=== PATIENT | female | born 1995 | race Caucasian/White ===

== ENCOUNTER → 2018-10-14 | Outpatient (CLI) | payer OTHER | LOC: M LRY 13:25 | PROVIDERS: ATTEND Nurse Practitioner Family | DX: Z53.9 Procedure and treatment not carried out, unspecified reason (principal) ==

== ENCOUNTER → 2018-10-14 | Outpatient (CLI) | payer OTHER ==
--- NOTE | 2018-10-14 15:27 | REP ---
RIGHT SHOULDER, THREE VIEWS: HISTORY: Acute pain. There is no acute fracture or dislocation. The joint spaces are normal in appearance. IMPRESSION: There is no acute fracture or dislocation. Electronically Signed by Cristian Khan MD 10/14/2018 03:40 P
== END ==
LOC: M LRY 14:32
PROVIDERS: ATTEND Nurse Practitioner Family
DX: M25.511 Pain in right shoulder (principal)

== ENCOUNTER → 2019-04-14 | Outpatient (REF) | payer OTHER | LOC: M LAB LCGH 11:30 | PROVIDERS: ATTEND Obstetrics & Gynecology | DX: Z12.4 Encounter for screening for malignant neoplasm of cervix (principal) ==

== ENCOUNTER → 2019-09-08 | Outpatient (CLI) | payer OTHER | LOC: M LAB 07:49 | PROVIDERS: ATTEND Advanced Practice Midwife | DX: Z34.02 Encounter for supervision of normal first pregnancy, second trimester (principal) ==

== ENCOUNTER 2019-11-04 19:02 | Inpatient (IN) | payer OTHER ==
[~2019-11-04] VITALS: Ht 165.1 cm; Wt 90.1 kg
[2019-11-04 19:17] VITALS: BP 118/69
[2019-11-04] MEDS ORDERED: PENICILLIN G POTASSIUM IV 5 MU in D5W MINI-BAG PLUS 100 ML IV STA (19:44)
[2019-11-04] MEDS ORDERED: OXYTOCIN DRIP 30 UNITS in IV 1 EA IV SCH (20:00)
[2019-11-04] MEDS ORDERED: PRENTAB9 PO (20:10)
[2019-11-04 20:19] LABS: HEMATOCRIT 35.4 % (36.0-47.0); HEMOGLOBIN 11.8 g/dl (12.0-15.5); MEAN CORPUSCULAR HEMOGLOBIN 29.9 pg (27.0-33.0); MEAN CORPUSCULAR HGB CONC 33.3 g/dl (32.0-36.5); MEAN CORPUSCULAR VOLUME 89.8 fl (80.0-96.0); PLATELET COUNT, AUTOMATED 174 10^3/uL (150-450); RED BLOOD COUNT 3.94 10^6/uL (4.00-5.40); WHITE BLOOD COUNT 9.4 10^3/uL (4.0-10.0)
[2019-11-04] MEDS: LR 1,000 ML IV SCH (20:54)
[2019-11-04 21:08] VITALS: BP 119/56
[2019-11-04 22:20] VITALS: BP 135/63
--- NOTE | 2019-11-04 22:35 | HPE ---
DATE OF ADMISSION: 11/04/2019 A 24-year-old 1, para 0 female at 36-1/7 weeks gestation by ultrasound, estimated date of confinement (EDC) 12/01/2019, presents with spontaneous loss of fluid per vagina at 5:30 p.m. on the day of admission. She continued to leak fluid. She denies contractions or vaginal bleeding. COURSE: The patient initiated care in [place]. She transferred to [facility] at 27 weeks on 09/03/2019. She had no complications. MEDICAL HISTORY: 1. Mild asthma. 2. Scoliosis. 3. Polycystic ovary syndrome (PCOS). 4. Gastroesophageal reflux. SURGICAL HISTORY: None. ALLERGIES: CECLOR. SOCIAL HISTORY: The patient denies cigarettes, alcohol or drug use. She lives in [place], [place]. FAMILY HISTORY: Noncontributory. PHYSICAL EXAMINATION: Blood pressure 134/74, pulse 84. Head and neck exam: Normal. Lungs: Clear. Heart: Regular rate and rhythm. Abdomen: Nontender, gravid. heart tones: Category 1. Contractions: None. Sterile vaginal exam: Grossly ruptured, clear fluid, Nitrazine positive, 3 cm, 80%, -2, posterior, soft, vertex. Extremities: Nontender. LABS: GBS unknown. ASSESSMENT: A 24-year-old 1, para 0 at 36 and 1 with premature rupture of membranes. PLAN: The patient will be admitted on 11/04/2019. Risks of premature rupture of membranes (PPROM) were discussed. Plan induction of labor. Plan GBS prophylaxis with penicillin. MTDD
[2019-11-05] VITALS (32 sets, daily range): BP systolic 80–126; BP diastolic 43–92
[2019-11-05] MEDS ORDERED: BUTORPHANOL 2 MG/ML INJ (J0595) IV ONE (00:45)
[2019-11-05] MEDS ORDERED: PROMETHAZINE INJ 25 MG/ML VIAL (J2550) IV ONE (00:45)
[2019-11-05] MEDS: PENICILLIN G POTASSIUM IV 2.5 MU in IV 1 EA IV SCH ×2 (01:02→05:00)
[2019-11-05] MEDS ORDERED: FENTANYL 2MCG/ML ROPIVACAINE 0.2% IN 0.9% NACL 100ML IVBAG As Ordered ONE (01:52)
[2019-11-05] MEDS: LR 1,000 ML IV SCH (02:04)
[2019-11-05] MEDS ORDERED: ePHEDrine SULFATE 25 MG/5 ML(5MG/ML) SYRINGE As Ordered ONE (03:05)
[2019-11-05] MEDS: ePHEDrine SULFATE 25 MG/5 ML(5MG/ML) SYRINGE IV PRN ×3 (03:07→03:19)
[2019-11-05] MEDS ORDERED: FENTANYL/ROPIVACAINE/NACL BAG 100 ML EPIDURAL SCH (03:30)
[2019-11-05] MEDS ORDERED: NALOXONE INJ 0.4MG/1ML VIAL (J2310 PER 1MG) IV PRN (03:30)
[2019-11-05] MEDS ORDERED: EPIDURAL COMMENT XX SCH (03:30)
[2019-11-05] MEDS ORDERED: REFRIGERATOR IV KEYS XX PRN (03:30)
[2019-11-05] MEDS ORDERED: EPIDURAL/PCA KEYS XX PRN (03:30)
[2019-11-05] MEDS ORDERED: ONDANSETRON 4MG/2ML VIAL IV PRN ×2 (03:30→07:00)
[2019-11-05] MEDS ORDERED: diphenhydrAMINE 50MG/ML VIAL (J1200) IV PRN (03:30)
[2019-11-05] MEDS ORDERED: LACTATED RINGER'S 1000 ML IV PRN (03:30)
[2019-11-05] MEDS ORDERED: DOCUSATE SODIUM 100 MG CAP PO PRN (07:00)
[2019-11-05] MEDS ORDERED: MEASLES,MUMPS,RUBELLA VACCINE INJ (MMR-II) (90707) SC SCH (07:00)
[2019-11-05] MEDS ORDERED: IBUPROFEN 600 MG TAB PO PRN (07:00)
[2019-11-05] MEDS ORDERED: RHOGAM 300 MCG (1500 IU) INJ (J2790) IM SCH (07:00)
[2019-11-05] MEDS ORDERED: OXYTOCIN DRIP 30 UNITS in IV 1 EA IV ONE (07:00)
[2019-11-05] MEDS ORDERED: DIBUCAINE 1% OINTMENT 30GM TOP PRN (07:00)
[2019-11-05] MEDS ORDERED: METHYLERGONOVINE MALEATE 0.2 MG TAB PO PRN (07:00)
[2019-11-05] MEDS ORDERED: ACETAMINOPHEN TAB 650MG DOSE (2X325MG) PO PRN (07:00)
[2019-11-05] MEDS ORDERED: ACETAMINOPHEN 500 MG TAB PO PRN (07:00)
[2019-11-05] MEDS: PRENATAL VITAMINS CHEWABLE TABLET PO SCH (09:07)
[2019-11-06 06:00] VITALS: BP 123/74
[2019-11-06] MEDS: PRENATAL VITAMINS CHEWABLE TABLET PO SCH (09:50)
[2019-11-06] MEDS: IBUPROFEN 800 MG TAB PO PRN (09:55)
[2019-11-06 18:28] VITALS: BP 109/86
[2019-11-07] MEDS: IBUPROFEN 800 MG TAB PO PRN (04:26)
[2019-11-07 06:00] VITALS: BP 115/82
[2019-11-07] MEDS ORDERED: ACET-683 PO (06:41)
[2019-11-07] MEDS: PRENATAL VITAMINS CHEWABLE TABLET PO SCH (07:28)
--- NOTE | 2019-11-09 15:55 | DN ---
DATE: 11/05/2019 PREDELIVERY DIAGNOSES: 1. 36 and 1/7 weeks gestation. 2. Premature rupture of membranes. POSTDELIVERY DIAGNOSIS: Delivered. PROCEDURE: Spontaneous vaginal delivery. DUPLEX TRIMMER: Cristian Malagon MD ANESTHESIA: Epidural. ESTIMATED BLOOD LOSS: 300 mL. FINDINGS: A 7-pound, 14-ounce male , scores 8 and 9. DELIVERY SUMMARY: After a one hour second stage of labor, the patient had spontaneous delivery of a 7-pound, 13-ounce male , scores 8 and 9 under epidural anesthesia. There was no nuchal cord. The shoulders delivered with ease. The infant was handed to the mother and cried quickly. The cord was doubly clamped and cut. The placenta delivered spontaneously and appeared to be intact. The patient received IV pitocin immediately after delivery of the placenta. A first-degree peroneal laceration was repaired with 2-0 Chromic in the usual fashion. Sponge counts and needle counts were correct.
== END 2019-11-07 13:35 | disposition home or self-care (01) | DRG 807 ==
LOC: M LDO 19:02 → M LDI 19:39 → M OBS 11-05 11:11
PROVIDERS: ADMIT Specialist; ATTEND Specialist
PROC: 10E0XZZ Delivery of Products of Conception, External Approach (ICD-10-PCS; principal; 2019-11-05)
PROC: 0HQ9XZZ Repair Perineum Skin, External Approach (ICD-10-PCS; 2019-11-05)
DX: O42.013 Preterm premature rupture of membranes, onset of labor within 24 hours of rupture, third trimester (principal); Z37.0 Single live birth; Z3A.36 36 weeks gestation of pregnancy; O70.0 First degree perineal laceration during delivery; O99.52 Diseases of the respiratory system complicating childbirth; J45.30 Mild persistent asthma, uncomplicated; O99.62 Diseases of the digestive system complicating childbirth; K21.9 Gastro-esophageal reflux disease without esophagitis; E28.2 Polycystic ovarian syndrome; O99.284 Endocrine, nutritional and metabolic diseases complicating childbirth

== ENCOUNTER → 2020-08-26 | Outpatient (CLI) | payer SELFPAY ==
[~2020-08-26] MED LIST: ACET-683 PO; PRENTAB9 PO
== END ==
LOC: M LABSMTC 12:58
PROVIDERS: ATTEND Pediatrics
DX: Z11.52 Encounter for screening for COVID-19 (principal)

== ENCOUNTER → 2021-01-03 | Outpatient (CLI) | payer OTHER ==
--- NOTE | 2021-01-03 10:31 | PFTRPT ---
Site: [facility], [address] [place] [address], [id number] ID: [id number] Name: RICK REEVES Visit Date: 01/03/2021 Second ID: [id number] Referring Doctor: Deepthi Caballero M.D. Reviewing Doctor: Petar Emery MD Report Analyst: Minal MELO RRT Age: 25 : 1995 Sex: Female Race: Height: 65.00 Inches Weight: 190.00 Lbs BSA: 1.94 Order IDs: [id number] Requested Test(s): <RESP-PFT.PFT B/A> Diagnosis: J45.99 test meet the ATS standards for acceptability and repeatability. Pt was given four puffs of albuterol for post bronchodilator. Review Status: Not Reviewed Pre-Bronch Post-Bronch Pred Actual %Pred Actual %Chng SPIROMETRY FVC (L) 3.91 3.43 87 3.53 3 FEV1 (L) 3.34 2.83 84 3.03 6 FEV1/FVC (%) 85 83 97 86 3 FEF 25% (L/sec) 5.91 5.00 84 5.31 6 FEF 50% (L/sec) 4.62 3.67 79 4.52 23 FEF 75% (L/sec) 2.00 1.30 65 1.74 33 FEF 25-75% (L/sec) 3.65 2.96 80 3.59 21 FEF Max (L/sec) 7.10 5.12 72 5.49 7 FIVC (L) 3.42 3.48 1 FIF 50% (L/sec) 4.34 3.70 85 2.99 -19 FIF Max (L/sec) 3.70 3.06 -17 MVV (L/min) 113 66 58 Expiratory Time (sec) 7.28 6.91 -5 Back Extrap Vol (L) 0.13 0.14 10 Time To FEFmax (sec) 0.171 0.185 7 LUNG VOLUMES SVC (L) 3.85 3.59 93 IC (L) 2.36 3.04 128 ERV (L) 1.49 0.55 36 TGV (L) 2.84 2.15 75 RV (Pleth) (L) 1.35 1.61 118 TLC (Pleth) (L) 5.20 5.20 99 RV/TLC (Pleth) (%) 25 31 123 DIFFUSION DLCOunc (ml/min/mmHg) 25.83 27.14 105 DL/VA (ml/min/mmHg/L) 4.97 5.95 119 VA (L) 5.20 4.56 87 BHT (sec) 9.71 IVC (L) 3.58 TLC (SB) (L) 4.71 AIRWAYS RESISTANCE Raw (cmH2O/L/s) 1.86 0.72 38 Gaw (L/s/cmH2O) 1.03 1.41 136 sRaw (cmH2O*s) 4.76 1.44 30 sGaw (1/cmH2O*s) 0.20 0.70 351
== END ==
LOC: M CARPUL 09:53
PROVIDERS: ATTEND Pediatrics
DX: J45.990 Exercise induced bronchospasm (principal)

== ENCOUNTER → 2022-05-30 | Outpatient (CLI) | payer OTHER | LOC: M RAD 16:27 | PROVIDERS: ATTEND Nurse Practitioner Family | DX: M79.645 Pain in left finger(s) (principal) ==

== ENCOUNTER → 2022-12-06 | Outpatient (REF) | payer OTHER, MEDICAID | LOC: M LAB REF 17:00 | PROVIDERS: ATTEND Nurse Practitioner Family | DX: Z32.00 Encounter for pregnancy test, result unknown (principal) ==

== ENCOUNTER → 2023-01-12 | Outpatient (REF) | payer OTHER, MEDICAID ==
[2023-01-12 12:19] LABS: HCG, SERUM QUALITATIVE POSITIVE (NEGATIVE)
== END ==
LOC: M LAB REF 11:24
PROVIDERS: ATTEND Pediatrics
DX: N91.2 Amenorrhea, unspecified (principal)

== ENCOUNTER → 2023-01-23 | Outpatient (CLI) | payer OTHER ==
[2023-01-23 15:49] LABS: HEMATOCRIT 37.7 % (36.0-47.0); HEMOGLOBIN 12.2 g/dl (12.0-15.5); MEAN CORPUSCULAR HEMOGLOBIN 28.2 pg (27.0-33.0); MEAN CORPUSCULAR HGB CONC 32.4 g/dl (32.0-36.5); MEAN CORPUSCULAR VOLUME 87.1 fl (80.0-96.0); PLATELET COUNT, AUTOMATED 229 10^3/uL (150-450); RED BLOOD COUNT 4.33 10^6/uL (4.00-5.40); WHITE BLOOD COUNT 5.7 10^3/uL (4.0-10.0)
[2023-01-23 16:46] LABS: HIV 1&2 SCREEN NEGATIVE (NEGATIVE)
[2023-01-23 16:53] LABS: HEPATITIS C VIRUS ABY INDEX 0.13 INDEX (<0.8)
[2023-01-23 17:33] LABS: GC DNA AMPLIFICATION NEGATIVE (NEGATIVE)
== END ==
LOC: M PLALAB 14:29
PROVIDERS: ATTEND Advanced Practice Midwife
DX: Z34.91 Encounter for supervision of normal pregnancy, unspecified, first trimester (principal)
CPT/HCPCS: 36415; 76801; 85027; 86762; 86780; 86803; 86850; 86900; 86901; 87086; 87340; 87389; 87810; 87850; G0463

== ENCOUNTER 2023-03-15 21:33 | Emergency (ER) | payer OTHER ==
[~2023-03-15] VITALS: Ht 165.1 cm; Wt 86.8 kg
[2023-03-15 22:32] LABS: BASO % 0.1 % (0.0-1.0); EOS # 0.1 10^3/uL (0.0-0.5); EOS % 0.7 % (0.0-3.0); HEMATOCRIT 30.9 % (36.0-47.0); HEMOGLOBIN 10.2 g/dl (12.0-15.5); LYMPH # 2.1 10^3/uL (1.5-5.0); LYMPH % 29.5 % (24.0-44.0); MEAN CORPUSCULAR HEMOGLOBIN 29.2 pg (27.0-33.0); MEAN CORPUSCULAR VOLUME 88.5 fl (80.0-96.0); MONO # 0.5 10^3/uL (0.0-0.8); MONO % 7.5 % (2.0-8.0); NEUTROPHILS # 4.4 10^3/uL (1.5-8.5); NEUTROPHILS % 61.9 % (36.0-66.0); PLATELET COUNT, AUTOMATED 230 10^3/uL (150-450); RED BLOOD COUNT 3.49 10^6/uL (4.00-5.40)
[2023-03-15 22:50] LABS: BLOOD UREA NITROGEN 7 MG/DL (9-23); CALCIUM LEVEL 8.6 MG/DL (8.5-10.1); CARBON DIOXIDE LEVEL 24 MMOL/L (20-31); CHLORIDE LEVEL 109 MMOL/L (98-107); GLOMERULAR FILTRATION RATE > 60.0 (>60); GLUCOSE, FASTING 90 MG/DL (60-100); POTASSIUM SERUM 3.7 MMOL/L (3.5-5.1); SODIUM LEVEL 141 MMOL/L (136-145)
[2023-03-15 23:07] LABS: HCG, SERUM QUANTITATIVE 34782.4 MIU/ML (<4.2)
[2023-03-16 02:40] VITALS: BP 114/71; TEMP 97.4; O2SAT 99
== END 2023-03-16 02:48 | disposition home or self-care (01) ==
LOC: M ED 21:33
DX: O43.2 Morbidly adherent placenta (principal); Z88.8 Allergy status to other drugs, medicaments and biological substances; Z79.1 Long term (current) use of non-steroidal anti-inflammatories (NSAID); Z79.899 Other long term (current) drug therapy

== ENCOUNTER 2023-03-27 02:12 | Emergency (ER) | payer MEDICAID, OTHER ==
[~2023-03-27] VITALS: Ht 152.4 cm; Wt 87.0 kg
[2023-03-27] MEDS ORDERED: CEPHALEXIN 500 MG CAP PO ONE (05:20)
[2023-03-27] MEDS ORDERED: CEPH500C PO (06:04)
[2023-03-27 06:07] VITALS: BP 137/77; TEMP 98.1; O2SAT 99
[2023-03-27] MEDS ORDERED: NITR1CAP11 PO (07:58)
== END 2023-03-27 06:12 | disposition home or self-care (01) ==
LOC: M ED 02:12
DX: O26.852 Spotting complicating pregnancy, second trimester (principal); O23.42 Unspecified infection of urinary tract in pregnancy, second trimester; Z79.899 Other long term (current) drug therapy; Z88.8 Allergy status to other drugs, medicaments and biological substances

== ENCOUNTER → 2023-04-16 | Outpatient (CLI) | payer OTHER ==
[~2023-04-16] MED LIST changes: +CEPH500C PO; +NITR1CAP11 PO
== END ==
LOC: M RAD 15:53
PROVIDERS: ATTEND Advanced Practice Midwife
DX: O09.892 Supervision of other high risk pregnancies, second trimester (principal); Z3A.21 21 weeks gestation of pregnancy

== ENCOUNTER 2023-05-17 16:33 | Observation (INO) | payer MEDICAID, OTHER ==
[~2023-05-17] VITALS: Ht 165.1 cm; Wt 86.8 kg
[~2023-05-17 16:33] MED LIST changes: -ALBU2.5V10 INH; -ALBU8.5H INH; -GUAI237L38 PO; -MULTTAB20 PO; -ONDA4TAB6 PO; -OSEL75CA PO; -PRED20TA PO
[2023-05-17] MEDS ORDERED: PRED20TA PO ×2 (16:44→23:38)
[2023-05-17 17:37] LABS: BASO % 0.1 % (0.0-1.0); EOS % 0.3 % (0.0-3.0); HEMATOCRIT 28.6 % (36.0-47.0); HEMOGLOBIN 9.4 g/dl (12.0-15.5); LYMPH # 1.9 10^3/uL (1.5-5.0); LYMPH % 23.7 % (24.0-44.0); MEAN CORPUSCULAR HEMOGLOBIN 29.4 pg (27.0-33.0); MEAN CORPUSCULAR HGB CONC 32.9 g/dl (32.0-36.5); MEAN CORPUSCULAR VOLUME 89.4 fl (80.0-96.0); MONO # 0.7 10^3/uL (0.0-0.8); MONO % 8.7 % (2.0-8.0); NEUTROPHILS # 5.3 10^3/uL (1.5-8.5); NEUTROPHILS % 66.8 % (36.0-66.0); PLATELET COUNT, AUTOMATED 235 10^3/uL (150-450); WHITE BLOOD COUNT 7.9 10^3/uL (4.0-10.0)
[2023-05-17 17:48] LABS: BLOOD UREA NITROGEN < 5 MG/DL (9-23); CALCIUM LEVEL 8.7 MG/DL (8.5-10.1); CARBON DIOXIDE LEVEL 24 MMOL/L (20-31); CHLORIDE LEVEL 107 MMOL/L (98-107); CREATININE FOR GFR 0.43 MG/DL (0.55-1.30); GLOMERULAR FILTRATION RATE > 60.0 (>60); GLUCOSE, FASTING 88 MG/DL (60-100); POTASSIUM SERUM 3.2 MMOL/L (3.5-5.1); SODIUM LEVEL 141 MMOL/L (136-145)
[2023-05-17 19:44] VITALS: TEMP 98.2
[2023-05-17] MEDS ORDERED: ALBUTEROL SULFATE 2.5MG/0.5ML INH NEB SOLN NEB ONE (19:45)
[2023-05-17] MEDS ORDERED: dexAMETHasone 20MG/5ML VIAL IV ONE (20:50)
[2023-05-17] MEDS ORDERED: MULTTAB20 PO (23:38)
[2023-05-17] MEDS ORDERED: ALBU8.5H INH (23:38)
[2023-05-17] MEDS ORDERED: GUAI237L38 PO (23:38)
[2023-05-17] MEDS ORDERED: ALBU2.5V10 INH (23:44)
[2023-05-17] MEDS ORDERED: ONDA4TAB6 PO (23:44)
[2023-05-17] MEDS ORDERED: HOME MED LIST COMPLETE! XX SCH (23:45)
[2023-05-18 01:45] VITALS: BP 106/55; O2SAT 96
[2023-05-18] MEDS ORDERED: LR 1,000 ML IV SCH (02:10)
[2023-05-18] MEDS ORDERED: ALBUTEROL SULFATE 2.5MG/0.5ML INH NEB SOLN INH PRN (02:35)
[2023-05-18] MEDS: ACETAMINOPHEN 500 MG TAB PO PRN ×2 (02:42→10:19)
[2023-05-18] MEDS ORDERED: OSELTAMIVIR PHOSPHATE 75 MG CAP (TAMIFLU) PO ONE (06:00)
[2023-05-18] MEDS ORDERED: guaiFENesin ER TABLET 600 MG TAB PO SCH (09:00)
[2023-05-18 14:35] VITALS: BP 93/50; O2SAT 96
[2023-05-18] MEDS ORDERED: OSEL75CA PO (16:40)
== END 2023-05-18 17:25 | disposition home or self-care (01) ==
LOC: M ED 16:33 → M OBS 23:45
PROVIDERS: ADMIT Obstetrics & Gynecology; ATTEND Obstetrics & Gynecology
DX: O99.512 Diseases of the respiratory system complicating pregnancy, second trimester (principal); J09.X2 Influenza due to identified novel influenza A virus with other respiratory manifestations; J45.901 Unspecified asthma with (acute) exacerbation; R09.02 Hypoxemia; Z3A.25 25 weeks gestation of pregnancy; Z80.49 Family history of malignant neoplasm of other genital organs; Z88.1 Allergy status to other antibiotic agents; Z91.013 Allergy to seafood
CPT/HCPCS: 71045; 80048; 85025; 87486; 87581; 87633; 87798; 94640; 96361; 96374; 99285; J1100

== ENCOUNTER → 2023-05-17 | Outpatient (CLI) | payer OTHER ==
[~2023-05-17] MED LIST changes: +ALBU2.5V10 INH; +ALBU8.5H INH; +GUAI237L38 PO; +MULTTAB20 PO; +ONDA4TAB6 PO; +OSEL75CA PO; +PRED20TA PO
[2023-05-17 17:43] LABS: HEMATOCRIT 29.3 % (36.0-47.0); HEMOGLOBIN 9.3 g/dl (12.0-15.5); MEAN CORPUSCULAR HEMOGLOBIN 28.6 pg (27.0-33.0); MEAN CORPUSCULAR HGB CONC 31.7 g/dl (32.0-36.5); MEAN CORPUSCULAR VOLUME 90.2 fl (80.0-96.0); PLATELET COUNT, AUTOMATED 237 10^3/uL (150-450); RED BLOOD COUNT 3.25 10^6/uL (4.00-5.40); WHITE BLOOD COUNT 7.5 10^3/uL (4.0-10.0)
== END ==
LOC: M PLALAB 14:53 → M OBS 05-18 01:15 → M PLALAB 05-18 01:15
PROVIDERS: ATTEND Advanced Practice Midwife
DX: O09.892 Supervision of other high risk pregnancies, second trimester (principal)

== ENCOUNTER → 2023-05-22 | Outpatient (CLI) | payer OTHER ==
[~2023-05-22] MED LIST changes: +ALBU2.5V10 INH; +ALBU8.5H INH; +GUAI237L38 PO; +MULTTAB20 PO; +ONDA4TAB6 PO; +OSEL75CA PO; +PRED20TA PO
[2023-05-22 18:21] LABS: FERRITIN 8.1 NG/ML (7.3-270.7)
== END ==
LOC: M PLALAB 15:53
PROVIDERS: ATTEND Advanced Practice Midwife
DX: O99.019 Anemia complicating pregnancy, unspecified trimester (principal); Z3A.00 Weeks of gestation of pregnancy not specified

== ENCOUNTER → 2023-06-06 | Outpatient (CLI) | payer OTHER | LOC: M PLALAB 16:26 | PROVIDERS: ATTEND Specialist | DX: Z34.82 Encounter for supervision of other normal pregnancy, second trimester (principal) | CPT/HCPCS: 36415; 86850; 86900; 86901; 90471; 90715; G0463; J2790 ==

== ENCOUNTER 2023-06-11 08:04 | Outpatient (CLI) | payer OTHER ==
[~2023-06-11] VITALS: Ht 165.1 cm; Wt 87.3 kg
[~2023-06-11 08:04] MED LIST changes: +IRON SUCROSE 500 MG in NS 250 ML OVER 4 HRS IV ONE
[2023-06-11 08:20] VITALS: BP 114/58; O2SAT 97
[2023-06-11 10:00] VITALS: BP 107/56; O2SAT 97
[2023-06-11 11:00] VITALS: BP 115/65; O2SAT 97
[2023-06-11 12:00] VITALS: BP 107/59; O2SAT 97
[2023-06-11 13:25] VITALS: BP 133/63; O2SAT 97
== END 2023-06-11 13:25 ==
LOC: M INFU 08:04
PROVIDERS: ATTEND Specialist
DX: D64.9 Anemia, unspecified (principal)
CPT/HCPCS: 96365; 96366; J1756

== ENCOUNTER 2023-06-14 14:39 | Outpatient (RCR) | payer OTHER ==
[~2023-06-14 14:39] MED LIST changes: -IRON SUCROSE 500 MG in NS 250 ML OVER 4 HRS IV ONE
[2023-06-25] MEDS ORDERED: ACET-897 PO (14:04)
== END 2023-07-04 ==
LOC: M PT 14:39
PROVIDERS: ATTEND Advanced Practice Midwife
DX: M54.50 Low back pain, unspecified (principal)

== ENCOUNTER 2023-06-25 11:04 | Emergency (ER) | payer OTHER ==
[~2023-06-25] VITALS: Ht 165.1 cm; Wt 190.0 kg
[2023-06-25 12:09] LABS: BASO % 0.1 % (0.0-1.0); EOS % 0.4 % (0.0-3.0); HEMATOCRIT 31.2 % (36.0-47.0); HEMOGLOBIN 10.3 g/dl (12.0-15.5); LYMPH # 1.5 10^3/uL (1.5-5.0); LYMPH % 20.3 % (24.0-44.0); MEAN CORPUSCULAR HEMOGLOBIN 29.9 pg (27.0-33.0); MEAN CORPUSCULAR VOLUME 90.7 fl (80.0-96.0); MONO # 0.5 10^3/uL (0.0-0.8); MONO % 7.1 % (2.0-8.0); NEUTROPHILS # 5.2 10^3/uL (1.5-8.5); NEUTROPHILS % 71.4 % (36.0-66.0); PLATELET COUNT, AUTOMATED 181 10^3/uL (150-450); RED BLOOD COUNT 3.44 10^6/uL (4.00-5.40); WHITE BLOOD COUNT 7.3 10^3/uL (4.0-10.0)
[2023-06-25 12:32] LABS: ALBUMIN 2.5 G/DL (3.2-5.2); ALKALINE PHOSPHATASE 104 U/L (46-116); ALT/SGPT < 9 U/L (7.0-40); AST/SGOT < 8 U/L (<34); BILIRUBIN,DIRECT < 0.1 MG/DL (<0.4); BILIRUBIN,TOTAL 0.4 MG/DL (0.3-1.2); TOTAL PROTEIN 5.7 G/DL (5.7-8.2)
[2023-06-25 13:21] VITALS: BP 106/60; TEMP 97.4; O2SAT 100
[2023-06-25] MEDS ORDERED: ACET-897 PO (14:04)
== END 2023-06-25 13:23 | disposition admitted as inpatient to this hospital (09) ==
LOC: M ED 11:04
DX: O9A.213 Injury, poisoning and certain other consequences of external causes complicating pregnancy, third trimester (principal); S30.1XXA Contusion of abdominal wall, initial encounter; V43.51XA Car driver injured in collision with sport utility vehicle in traffic accident, initial encounter; Y92.410 Unspecified street and highway as the place of occurrence of the external cause; Y93.89 Activity, other specified; Y99.8 Other external cause status; Z3A.31 31 weeks gestation of pregnancy

== ENCOUNTER 2023-06-25 13:35 | Outpatient (CLI) | payer OTHER ==
[~2023-06-25] VITALS: Ht 165.1 cm; Wt 89.2 kg
[2023-06-25 14:03] VITALS: BP 114/60
[2023-06-25] MEDS ORDERED: ACET-897 PO (14:04)
== END 2023-06-25 16:05 | disposition home or self-care (01) ==
LOC: M LDO 13:35
PROVIDERS: ATTEND Advanced Practice Midwife
DX: Z04.1 Encounter for examination and observation following transport accident (principal); O99.513 Diseases of the respiratory system complicating pregnancy, third trimester; J45.909 Unspecified asthma, uncomplicated; O99.013 Anemia complicating pregnancy, third trimester; D50.9 Iron deficiency anemia, unspecified; Z3A.31 31 weeks gestation of pregnancy; O09.213 Supervision of pregnancy with history of pre-term labor, third trimester; Z67.11 Type A blood, Rh negative; Y92.9 Unspecified place or not applicable; Y93.9 Activity, unspecified; Y99.9 Unspecified external cause status; V43.51XA Car driver injured in collision with sport utility vehicle in traffic accident, initial encounter; O9A.213 Injury, poisoning and certain other consequences of external causes complicating pregnancy, third trimester
CPT/HCPCS: 59025; 76815; 76820; 80047; 80076; 81001; 85025; 85460; 86850; 86900; 86901; G0463

== ENCOUNTER → 2023-07-31 | Outpatient (REF) | payer OTHER ==
[~2023-07-31] MED LIST changes: +ACET-897 PO
== END ==
LOC: M PLALAB 15:08
PROVIDERS: ATTEND Advanced Practice Midwife
DX: Z36.85 Encounter for antenatal screening for Streptococcus B (principal)

== ENCOUNTER 2023-08-09 12:29 | Outpatient (CLI) | payer OTHER ==
[~2023-08-09] VITALS: Ht 165.1 cm; Wt 94.5 kg
[2023-08-09 12:43] VITALS: BP 122/58
[2023-08-09] MEDS ORDERED: HOME MED LIST COMPLETE! XX SCH (12:50)
[2023-08-09 15:41] VITALS: BP 128/70
== END 2023-08-09 15:54 | disposition home or self-care (01) ==
LOC: M LDO 12:29
PROVIDERS: ATTEND Obstetrics & Gynecology
DX: O47.1 False labor at or after 37 completed weeks of gestation (principal); Z3A.37 37 weeks gestation of pregnancy
CPT/HCPCS: 59025; G0463

== ENCOUNTER 2023-08-10 19:43 | Outpatient (CLI) | payer OTHER ==
[~2023-08-10] VITALS: Ht 165.1 cm; Wt 94.2 kg
[2023-08-10 20:01] VITALS: BP 123/70
== END 2023-08-10 20:30 | disposition home or self-care (01) ==
LOC: M LDO 19:43
PROVIDERS: ATTEND Advanced Practice Midwife
DX: O26.893 Other specified pregnancy related conditions, third trimester (principal); O99.513 Diseases of the respiratory system complicating pregnancy, third trimester; O99.013 Anemia complicating pregnancy, third trimester; O09.213 Supervision of pregnancy with history of pre-term labor, third trimester; J45.909 Unspecified asthma, uncomplicated; N89.8 Other specified noninflammatory disorders of vagina; D50.9 Iron deficiency anemia, unspecified; Z3A.37 37 weeks gestation of pregnancy
CPT/HCPCS: 59025; G0463

== ENCOUNTER 2023-08-14 10:19 | Inpatient (IN) | payer OTHER ==
[2023-08-14] VITALS (18 sets, daily range): BP systolic 111–146; BP diastolic 59–83; O2SAT 99
[~2023-08-14] VITALS: Ht 165.1 cm; Wt 93.1 kg
[2023-08-14] MEDS ORDERED: HOME MED LIST COMPLETE! XX SCH (10:40)
[2023-08-14] MEDS ORDERED: LACTATED RINGER'S 1000 ML IV PRN (10:55)
[2023-08-14] MEDS ORDERED: TRANEXAMIC ACID INJection 1,000 MG in NS 100 ML IV PRN (10:55)
[2023-08-14] MEDS ORDERED: METHYLERGONOVINE MALEATE 0.2MG/ML 1ML VIAL IM PRN (10:55)
[2023-08-14] MEDS ORDERED: OXYTOCIN DRIP 30 UNITS in IV 1 EA IV PRN (10:55)
[2023-08-14 11:52] LABS: HEMATOCRIT 35.4 % (36.0-47.0); HEMOGLOBIN 11.6 g/dl (12.0-15.5); MEAN CORPUSCULAR HEMOGLOBIN 29.1 pg (27.0-33.0); MEAN CORPUSCULAR HGB CONC 32.8 g/dl (32.0-36.5); MEAN CORPUSCULAR VOLUME 88.7 fl (80.0-96.0); PLATELET COUNT, AUTOMATED 194 10^3/uL (150-450); RED BLOOD COUNT 3.99 10^6/uL (4.00-5.40)
[2023-08-14] MEDS: OXYTOCIN DRIP 30 UNITS in IV 1 EA IV SCH ×2 (15:57→19:35)
[2023-08-14] MEDS: LR 1,000 ML IV SCH (15:57)
[2023-08-14] MEDS ORDERED: ONDANSETRON 4MG 2ML VIAL IV PRN (18:20)
[2023-08-14] MEDS ORDERED: diphenhydrAMINE 50MG/ML VIAL IV PRN (18:20)
[2023-08-14] MEDS ORDERED: EPIDURAL/PCA KEYS XX PRN (18:20)
[2023-08-14] MEDS ORDERED: NALOXONE INJ 0.4MG/1ML VIAL IV PRN (18:20)
[2023-08-14] MEDS ORDERED: ePHEDrine SULFATE 25 MG/5 ML(5MG/ML) SYRINGE IVP PRN (18:20)
[2023-08-14] MEDS ORDERED: LR 500 ML IV PRN (18:20)
[2023-08-14] MEDS ORDERED: LIDOCAINE 1% MDV 20ML VIAL As Ordered ONE (18:47)
[2023-08-14] MEDS: OXYTOCIN DRIP 30 UNITS in IV 1 EA IV PRN (19:17)
[2023-08-14] MEDS: FENTANYL/ROPIVACAINE/NACL BAG 100 ML EPIDURAL SCH (19:25)
[2023-08-14] MEDS ORDERED: RHOGAM 300MCG (1500IU) INJ IM SCH (19:35)
[2023-08-14] MEDS ORDERED: DIBUCAINE 1% OINTMENT 30GM TOP PRN (19:35)
[2023-08-14] MEDS ORDERED: METHYLERGONOVINE MALEATE 0.2 MG TAB PO PRN (19:35)
[2023-08-14] MEDS ORDERED: DOCUSATE SODIUM 100MG CAPSULE PO PRN (19:35)
[2023-08-14] MEDS: LIDOCAINE 1% MDV 20ML VIAL INFIL ONE (20:00)
[2023-08-14] MEDS: ACETAMINOPHEN 500 MG TAB PO PRN (22:21)
[2023-08-15 06:10] VITALS: BP 108/63; O2SAT 98
[2023-08-15 07:35] LABS: HEMATOCRIT 32.8 % (36.0-47.0); HEMOGLOBIN 10.4 g/dl (12.0-15.5); MEAN CORPUSCULAR HEMOGLOBIN 28.4 pg (27.0-33.0); MEAN CORPUSCULAR HGB CONC 31.7 g/dl (32.0-36.5); MEAN CORPUSCULAR VOLUME 89.6 fl (80.0-96.0); PLATELET COUNT, AUTOMATED 180 10^3/uL (150-450); RED BLOOD COUNT 3.66 10^6/uL (4.00-5.40); WHITE BLOOD COUNT 9.3 10^3/uL (4.0-10.0)
[2023-08-15] MEDS: PRENATAL VITAMINS CHEWABLE TABLET PO SCH (09:13)
[2023-08-15] MEDS: IBUPROFEN 600MG TAB PO PRN (09:13)
[2023-08-15 18:00] VITALS: BP 116/65; O2SAT 98
[2023-08-15 21:00] VITALS: BP 116/65; TEMP 98.5; O2SAT 98
[2023-08-16 06:00] VITALS: BP 127/77; O2SAT 98
[2023-08-16] MEDS: MEASLES,MUMPS,RUBELLA VACCINE INJ (MMR-II) SC.IMMUN ONE (09:22)
== END 2023-08-16 13:33 | disposition home or self-care (01) | DRG 807 ==
LOC: M LDO 10:19 → M LDI 10:56 → M OBS 20:45
PROVIDERS: ADMIT Obstetrics & Gynecology; ATTEND Obstetrics & Gynecology
PROC: 10D17Z9 Manual Extraction of Products of Conception, Retained, Via Natural or Artificial Opening (ICD-10-PCS; principal; 2023-08-14)
PROC: 10E0XZZ Delivery of Products of Conception, External Approach (ICD-10-PCS; 2023-08-14)
PROC: 0UQMXZZ Repair Vulva, External Approach (ICD-10-PCS; 2023-08-14)
DX: O42.02 Full-term premature rupture of membranes, onset of labor within 24 hours of rupture (principal); Z37.0 Single live birth; Z3A.38 38 weeks gestation of pregnancy; O69.81X0 Labor and delivery complicated by cord around neck, without compression, not applicable or unspecified; O77.0 Labor and delivery complicated by meconium in amniotic fluid; O71.82 Other specified trauma to perineum and vulva; O73.1 Retained portions of placenta and membranes, without hemorrhage